=== PATIENT | male | born 1930 | race Caucasian/White ===

== ENCOUNTER 2018-10-14 09:16 | Day surgery (SDC) | payer MEDICARE, BC ==
[~2018-10-14] VITALS: Ht 182.9 cm; Wt 84.6 kg
[2018-10-14] VITALS (8 sets, daily range): BP systolic 89–113; BP diastolic 54–74
[~2018-10-14 09:16] MED LIST: ASPI-1071 PO
[2018-10-14] MEDS ORDERED: diphenhydrAMINE 25mg capsule PO PRN (09:50)
[2018-10-14] MEDS ORDERED: sod bicarbonate 150mEq in D5W 1,150 ML IV ONE (09:50)
[2018-10-14] MEDS ORDERED: FURO-149 PO (10:23)
[2018-10-14] MEDS ORDERED: ASPI81TA52 PO (10:23)
[2018-10-14] MEDS ORDERED: POTA10TA19 PO (10:23)
[2018-10-14] MEDS ORDERED: TAMS0.4C32 PO (10:23)
[2018-10-14] MEDS ORDERED: LISI-600 PO (10:23)
[2018-10-14] MEDS ORDERED: CLOP75TA35 PO (10:23)
[2018-10-14] MEDS ORDERED: ATOR40TA PO (10:23)
[2018-10-14] MEDS ORDERED: FINA5TAB11 PO (10:23)
[2018-10-14 10:43] LABS: BASOPHILS % (AUTO) 0.5 % (0-1); EOSINOPHILS # (AUTO) 0.4 X10'3 (0-0.9); EOSINOPHILS % (AUTO) 6.6 % (0-6); HEMATOCRIT 41.6 % (42.0-52.0); HEMOGLOBIN 13.5 g/dl (14.0-17.9); LYMPHOCYTES # (AUTO) 0.7 X10'3 (1.1-4.8); LYMPHOCYTES % (AUTO) 12.5 % (21-51); MEAN CORPUSCULAR HEMOGLOBIN 29.7 PG (27.0-31.0); MEAN CORPUSCULAR HGB CONC 32.4 % (33.0-36.5); MEAN CORPUSCULAR VOLUME 91.6 FL (78-98); MEAN PLATELET VOLUME 10.2 FL (7.4-10.4); MONOCYTES # (AUTO) 0.5 X10'3 (0-0.9); MONOCYTES % (AUTO) 9.9 % (2-12); NEUTROPHILS # (AUTO) 3.9 X10'3 (1.8-7.7); NEUTROPHILS % (AUTO) 70.5 % (42-75); PLATELET COUNT 243 X10'3 (140-440); RED BLOOD COUNT 4.54 X10'6 (4.70-6.10); RED CELL DISTRIBUTION WIDTH 14.3 % (11.5-14.5); WHITE BLOOD COUNT 5.6 X10'3 (4.5-11.0)
[2018-10-14 11:06] LABS: ALBUMIN 3.3 G/DL (3.4-5.0); ANION GAP 7 (8-16); BLOOD UREA NITROGEN 17 MG/DL (7-18); BUN/CREATININE RATIO 14.8 (5.4-32.0); CHLORIDE 103 MMOL/L (99-107); CREATININE 1.15 MG/DL (0.60-1.10); GLUCOSE 105 MG/DL (70-104); MAGNESIUM 1.9 MG/DL (1.5-2.4); POTASSIUM 3.9 MMOL/L (3.5-5.1); SODIUM 141 MMOL/L (135-145); TOTAL CARBON DIOXIDE 31.2 MMOL/L (24-32); eGFR 60 ML/MIN
[2018-10-14 11:23] LABS: INR 1.1 INR; PROTHROMBIN TIME 11.3 SECONDS (9.0-12.0)
[2018-10-14] MEDS ORDERED: lidocaine 1%/epinephrine 1:100,000 injection 50ml vial ONE (11:29)
[2018-10-14] MEDS ORDERED: cefazolin/dext.iso 2gm/50ml 50 ML IV ONE (11:29)
[2018-10-14] MEDS ORDERED: iohexol 350MG/ML 100ml bottle IV ONE (11:29)
[2018-10-14] MEDS ORDERED: midazolam 2 mg/2 ml injection ONE ×3 (11:29→13:23)
[2018-10-14] MEDS ORDERED: fentaNYL/PF 50MCG/1 ML 2ML syringe ONE ×2 (11:29→13:26)
[2018-10-14] MEDS ORDERED: vancomycin 1,000mg inj ONE (11:30)
[2018-10-14] MEDS ORDERED: iohexol 350 MG/ML 50ML vial IV ONE (12:45)
== END 2018-10-14 17:38 | disposition home or self-care (01) ==
LOC: SSTAY O 09:16
PROVIDERS: ATTEND Internal Medicine Cardiovascular Disease
DX: I25.5 Ischemic cardiomyopathy (principal); I44.2 Atrioventricular block, complete; I49.5 Sick sinus syndrome; I25.2 Old myocardial infarction; I25.10 Atherosclerotic heart disease of native coronary artery without angina pectoris; E78.5 Hyperlipidemia, unspecified; I48.91 Unspecified atrial fibrillation; I49.8 Other specified cardiac arrhythmias; I10 Essential (primary) hypertension; H91.8X3 Other specified hearing loss, bilateral; Z87.2 Personal history of diseases of the skin and subcutaneous tissue; Z95.5 Presence of coronary angioplasty implant and graft; Z95.0 Presence of cardiac pacemaker; Z86.73 Personal history of transient ischemic attack (TIA), and cerebral infarction without residual deficits; Z79.82 Long term (current) use of aspirin; Z79.899 Other long term (current) drug therapy; Z98.890 Other specified postprocedural states; Z83.6 Family history of other diseases of the respiratory system; Z82.49 Family history of ischemic heart disease and other diseases of the circulatory system
CPT/HCPCS: 33225; 33233; 33235; 33249; 36415; 71046; 80048; 83735; 85025; 85610; 93005; 93641; 99152; 99153; C1882; C1887; C1895; C1900; J0690; J2250; J3010; J3370; J3490; J7030; Q0163; Q9967; 33224; 33264; A4620; C1769; C1894

== ENCOUNTER 2018-12-07 07:25 | Day surgery (SDC) | payer MEDICARE, BC ==
[~2018-12-07] VITALS: Ht 182.9 cm; Wt 81.5 kg
[2018-12-07] VITALS (17 sets, daily range): BP systolic 93–113; BP diastolic 55–83
[~2018-12-07 07:25] MED LIST changes: -ASPI-1071 PO; +ASPI81TA52 PO; +ATOR40TA PO; +CLOP75TA35 PO; +FINA5TAB11 PO; +FURO-149 PO; +LISI-600 PO; +POTA10TA19 PO; +TAMS0.4C32 PO
[2018-12-07] MEDS ORDERED: AMIO200T40 PO (07:49)
[2018-12-07] MEDS ORDERED: RIVA15TA PO (07:49)
[2018-12-07] MEDS ORDERED: normal saline 1000ml 1,000 ML IV SCH (07:50)
[2018-12-07] MEDS ORDERED: MIDAZolam 5mg/ml 2ml vial IV PRN (07:50)
[2018-12-07] MEDS ORDERED: fentaNYL/PF 50MCG/1 ML 2ML syringe IV PRN (07:50)
[2018-12-07 08:47] LABS: BASOPHILS % (AUTO) 0.2 % (0-1); EOSINOPHILS # (AUTO) 0.2 X10'3 (0-0.9); EOSINOPHILS % (AUTO) 3.5 % (0-6); HEMATOCRIT 44.6 % (42.0-52.0); HEMOGLOBIN 14.6 g/dl (14.0-17.9); LYMPHOCYTES # (AUTO) 0.8 X10'3 (1.1-4.8); LYMPHOCYTES % (AUTO) 13.7 % (21-51); MEAN CORPUSCULAR HEMOGLOBIN 29.8 PG (27.0-31.0); MEAN CORPUSCULAR HGB CONC 32.8 % (33.0-36.5); MEAN CORPUSCULAR VOLUME 90.8 FL (78-98); MEAN PLATELET VOLUME 9.8 FL (7.4-10.4); MONOCYTES # (AUTO) 0.5 X10'3 (0-0.9); MONOCYTES % (AUTO) 9.7 % (2-12); NEUTROPHILS # (AUTO) 4.1 X10'3 (1.8-7.7); NEUTROPHILS % (AUTO) 72.9 % (42-75); PLATELET COUNT 250 X10'3 (140-440); RED BLOOD COUNT 4.91 X10'6 (4.70-6.10); RED CELL DISTRIBUTION WIDTH 15.3 % (11.5-14.5); WHITE BLOOD COUNT 5.6 X10'3 (4.5-11.0)
[2018-12-07 08:59] LABS: INR 1.3 INR; PROTHROMBIN TIME 13.4 SECONDS (9.0-12.0)
[2018-12-07 09:00] LABS: ALBUMIN 3.7 G/DL (3.4-5.0); ANION GAP 11 (8-16); BLOOD UREA NITROGEN 33 MG/DL (7-18); BUN/CREATININE RATIO 24.4 (5.4-32.0); CALCIUM 9.3 MG/DL (8.5-10.1); CHLORIDE 104 MMOL/L (99-107); CREATININE 1.35 MG/DL (0.60-1.10); GLUCOSE 116 MG/DL (70-104); POTASSIUM 4.4 MMOL/L (3.5-5.1); SODIUM 140 MMOL/L (135-145); TOTAL CARBON DIOXIDE 24.9 MMOL/L (24-32); eGFR 50 ML/MIN
[2018-12-07 09:05] LABS: GIANT PLATELET FEW; LARGE PLATELETS FEW; PLATELET ESTIMATE NORMAL
== END 2018-12-07 11:05 | disposition home or self-care (01) ==
LOC: SSTAY O 07:25
PROVIDERS: ATTEND Internal Medicine Cardiovascular Disease
DX: I48.0 Paroxysmal atrial fibrillation (principal); I25.5 Ischemic cardiomyopathy; I25.810 Atherosclerosis of coronary artery bypass graft(s) without angina pectoris; I49.5 Sick sinus syndrome; E78.5 Hyperlipidemia, unspecified; I25.2 Old myocardial infarction; I10 Essential (primary) hypertension; I49.8 Other specified cardiac arrhythmias; H91.8X3 Other specified hearing loss, bilateral; Z95.5 Presence of coronary angioplasty implant and graft; Z95.1 Presence of aortocoronary bypass graft; Z95.0 Presence of cardiac pacemaker; Z86.73 Personal history of transient ischemic attack (TIA), and cerebral infarction without residual deficits; Z79.899 Other long term (current) drug therapy; Z98.890 Other specified postprocedural states; Z82.49 Family history of ischemic heart disease and other diseases of the circulatory system; Z83.6 Family history of other diseases of the respiratory system
CPT/HCPCS: 36415; 80048; 83735; 85025; 85610; 92960; J2250; J3010; J7030